=== PATIENT | male | born 1970 ===

== ENCOUNTER 2022-09-20 13:28 | Emergency (ER) | payer OTHER, SELFPAY ==
--- NOTE | ~2022-09-20 | CT_ITS ---
EXAMINATION: CT ABDOMEN AND PELVIS WITH CONTRAST CLINICAL INFORMATION: 10 out of 10 abdominal pain with nausea vomiting and diarrhea COMPARISON: None TECHNIQUE: Multidetector volumetric images were obtained from the superior aspect of the liver through the pubic symphysis following administration 85 mL of Omnipaque 350 intravenous contrast. Sagittal and coronal reformatted images were obtained on the technologist's workstation. Oral contrast: No This CT examination was performed using dose optimization techniques as appropriate, variously including the following: *Automated exposure control *Adjustment of mA and/or kV according to patient size (this includes techniques or standardized protocols for targeted exams where dose is matched to indication/reason for exam; i.e. extremities or head) *Use of iterative reconstruction technique DLP: 1287 mGy-cm FINDINGS: LUNG BASES: Minimal hazy bibasilar atelectasis. LIVER, GALLBLADDER, AND BILIARY TREE: Normal hepatic size. Slight hepatic hypoattenuation, possibly mild steatosis. 4.8 cm slightly lobulated indeterminate hypodense lesion in segment 7 series 3 image 21. Smaller indeterminate 1.7 cm lesion in segment 3 and 1.1 cm lesion in segment 4A. No biliary ductal dilation. The gallbladder is unremarkable with no evidence of radiopaque gallstones, gallbladder wall thickening, or obvious pericholecystic inflammatory changes. PANCREAS: Unremarkable. SPLEEN: Unremarkable. ADRENAL GLANDS: Unremarkable. KIDNEYS AND URETERS: Nephrograms are symmetric. No hydronephrosis. Small 2 mm nonobstructing right lower pole renal calculus. Small subcentimeter right lower pole hypodense lesion likely a tiny cyst, too small to characterize. No further follow-up imaging recommended. No additional renal lesions. Minimal symmetric perirenal fascial stranding, nonspecific. No perirenal fluid collection. BLADDER: Unremarkable. GASTROINTESTINAL TRACT: No dilated bowel loops. No bowel wall thickening. Normal appendix. No ascites or free air. ABDOMINAL WALL: Tiny fat-containing umbilical hernia. Small fat-containing left inguinal hernia. LYMPH NODES: No lymphadenopathy. VASCULAR: Normal caliber abdominal aorta. The celiac, SMA, and KATIA origins are patent. Portal vein, SMV and splenic vein are patent. PELVIC VISCERA: Unremarkable. OSSEOUS STRUCTURES: No acute fracture or suspicious osseous lesion. CT/CT abdomen pelvis w IV con IMPRESSION: 1. No acute intra-abdominal process identified. 2. Indeterminate hepatic lesions, the largest measuring 4.8 cm in size in segment 7. Recommend further characterization with multi phase liver MRI. 3. Small 2 mm nonobstructing right lower pole renal calculus. No hydronephrosis. 4. Additional chronic findings, as described.
[2022-09-20 13:36] VITALS: BP 139/91; PULSE 122; RESP 18; TEMP 36.6; O2SAT 98; BMI 28.5
--- NOTE | 2022-09-20 13:36 | ED.GENADULT ---
HPI - General Adult General Chief complaint: Abdominal Pain <DIONTE Montague - Last Filed: 09/20/22 13:39> Stated complaint: abd pain <DIONTE Montague - Last Filed: 09/20/22 13:39> Time Seen by Provider: 09/20/22 17:23 <DIONTE Montague - Last Filed: 09/20/22 13:39> Source: patient <DIONTE Montague - Last Filed: 09/20/22 13:39> patient <DIONTE Powell - Last Filed: 09/20/22 20:39> Mode of arrival: ambulatory <DIONTE Montague Last Filed: 09/20/22 13:39> ambulatory <DIONTE Powell - Last Filed: 09/20/22 20:39> Limitations: no limitations <DIONTE Montague - Last Filed: 09/20/22 13:39> no limitations <DIONTE Powell - Last Filed: 09/20/22 20:39> History of Present Illness HPI narrative: 52 yo male male presents to the ER for evaluation of 10/10 central abdominal pain that started this morning. It is associated with multiple episodes of nonbloody vomitus and nonbloody diarrhea. He states last night he had pork for dinner, no one else ate the pork. He thinks it might have been bad. He denies any fever or chills. He states the pain is in his central abdomen and radiates everywhere. It is been constant and reportedly a 10/10. No urinary symptoms. No chest pain, shortness of breath or URI symptoms. <DIONTE Powell - Last Filed: 09/20/22 20:39> MD complaint: Abdominal pain associated with nausea, vomiting, diarrhea <DIONTE Powell Last Filed: 09/20/22 20:39> Onset (ago): hour(s) <DIONTE Powell - Last Filed: 09/20/22 20:39> Location: abdomen <DIONTE Powell Last Filed: 09/20/22 20:39> Radiation: non-radiation <DIONTE Powell Last Filed: 09/20/22 20:39> Severity: severe <DIONTE Powell - Last Filed: 09/20/22 20:39> Severity scale (1-10): 10 <DIONTE Powell - Last Filed: 09/20/22 20:39> Quality: stabbing <DIONTE Powell Last Filed: 09/20/22 20:39> Pain Consistency: constant <DIONTE Powell Last Filed: 09/20/22 20:39> Relieving factors: none <DIONTE Powell Last Filed: 09/20/22 20:39> Exacerbating factors: none <DIONTE Powell Last Filed: 09/20/22 20:39> Associated symptoms: loss of appetite, malaise, nausea/vomiting and weakness <DIONTE Powell Last Filed: 09/20/22 20:39> Treatments prior to arrival: none <DIONTE Powell Last Filed: 09/20/22 20:39> Related Data Home medications: Previous Rx's Medication Instructions Recorded ondansetron 4 mg disintegrating 4 mg PO Q8H PRN nausea and 09/20/22 tablet vomiting #10 tabs <DIONTE Montague - Last Filed: 09/20/22 13:39> Allergies/adverse reactions: Allergies Allergy/AdvReac Type Severity Reaction Status Date / Time No Known Allergies Allergy Unverified 06/06/20 19:28 <DIONTE Montague - Last Filed: 09/20/22 13:39> Review of Systems Review of Systems: Yes all other systems are reviewed and are negative <DIONTE Powell Last Filed: 09/20/22 20:39> PMFSH Social History Social History: Social History Advance Directives: No Advance Directives Information Provided: No <DIONTE Montague Last Filed: 09/20/22 13:39> Physical Exam ED Vital Signs: Vital Signs - 24 hr 09/20/22 13:36 09/20/22 17:31 09/20/22 18:50 Temperature 98 F 98.2 F 98.2 F Pulse Rate 122 H 100 103 H Respiratory Rate 18 16 16 Blood Pressure 139/91 H 139/85 119/65 Pulse Oximetry 98 97 96 Oxygen Delivery Method Room Air Room Air Room Air BMI result Body Mass Index 28.5 <DIONTE Montague Last Filed: 09/20/22 13:39> Vital Signs - 24 hr 09/20/22 13:36 09/20/22 17:31 09/20/22 18:50 Temperature 98 F 98.2 F 98.2 F Pulse Rate 122 H 100 103 H Respiratory Rate 18 16 16 Blood Pressure 139/91 H 139/85 119/65 Pulse Oximetry 98 97 96 Oxygen Delivery Method Room Air Room Air Room Air BMI result Body Mass Index 28.5 <DIONTE Powell Last Filed: 09/20/22 20:39> Appearance: Alert. Oriented X3. No acute distress. Eyes: Pupils equal, round and reactive to light. ENT: Pharynx normal. Neck: Normal inspection. Neck supple. CVS: Normal heart rate and rhythm. Pulses normal. Respiratory: No respiratory distress. Breath sounds normal. Abdomen: Soft with mild diffuse tenderness throughout, no rebound or guarding. normal +BS x4 Skin: Skin warm and dry. Normal skin color. Normal skin turgor. No rashes. Extremities: No lower extremity edema. Neuro: Oriented X 3. No motor deficit. No sensory deficit. <DIONTE Powell Last Filed: 09/20/22 20:39> Course Course Course Narrative: RME performed by Rain Arellano PA-C. Patient is a 52 year old male presenting to the emergency department with abdominal pain. Patient states that he ate some questionable food and is now having stomach pain. Labs ordered. Patient placed in waiting room pending results and room availability. <DIONTE Montague Last Filed: 09/20/22 13:39> Reevaluation(s) Reevaluation #1: Patient seen and examined. Lab workup reviewed. Unremarkable findings. He is reporting 10/10 abd pain with some mild diffuse tenderness on exam. Will get CT scan for further evaluation. IVF, Morphine and zofran ordered. <DIONTE Powell Last Filed: 09/20/22 20:39> Time: 17:25 <DIONTE Powell Last Filed: 09/20/22 20:39> Reevaluation #2: CT scan showing no acute intra-abdominal process. Indeterminate hepatic lesions, largest measuring 4.8 cm. Patient is feeling better for medications. He is tolerating oral fluids. We discussed results of his CT scan his lab workup. Most likely gastroenteritis. Will discharge home with danuta Garcia. He will follow up with his PCP. Stable for DC. <DIONTE Powell - Last Filed: 09/20/22 20:39> Time: 20:36 <DIONTE Powell - Last Filed: 09/20/22 20:39> Medications Administered Discontinued Medications Generic Name Dose Route Start Last Admin Trade Name Freq PRN Reason Stop Dose Admin Sodium Chloride 1,000 mls @ 999 mls/hr 09/20/22 17:30 09/20/22 19:21 Ns IV 09/20/22 18:30 Infused .Q1H1M DALTON Infusion Iohexol 100 ml 09/20/22 19:35 09/20/22 19:35 Iohexol 350 Mg/Ml 100 Ml Infus..Btl IV 09/20/22 19:36 85 ml ONCE ONE Administration Morphine Sulfate 4 mg 09/20/22 17:28 09/20/22 18:09 Morphine Sulfate 4 Mg/Ml Cartridge IVPUSH 09/20/22 17:29 4 mg ONCE ONE Administration Protocol Ondansetron HCl 4 mg 09/20/22 17:28 09/20/22 18:09 Ondansetron Hcl 4 Mg/2 Ml Vial IVPUSH 09/20/22 17:29 4 mg ONCE ONE Administration <DIONTE Montague - Last Filed: 09/20/22 13:39> Medications Administered Discontinued Medications Generic Name Dose Route Start Last Admin Trade Name Freq PRN Reason Stop Dose Admin Sodium Chloride 1,000 mls @ 999 mls/hr 09/20/22 17:30 09/20/22 19:21 Ns IV 09/20/22 18:30 Infused .Q1H1M DALTON Infusion Iohexol 100 ml 09/20/22 19:35 09/20/22 19:35 Iohexol 350 Mg/Ml 100 Ml Infus..Btl IV 09/20/22 19:36 85 ml ONCE ONE Administration Morphine Sulfate 4 mg 09/20/22 17:28 09/20/22 18:09 Morphine Sulfate 4 Mg/Ml Cartridge IVPUSH 09/20/22 17:29 4 mg ONCE ONE Administration Protocol Ondansetron HCl 4 mg 09/20/22 17:28 09/20/22 18:09 Ondansetron Hcl 4 Mg/2 Ml Vial IVPUSH 09/20/22 17:29 4 mg ONCE ONE Administration <DIONTE Powell - Last Filed: 09/20/22 20:39> Medical Decision Making Differential Diagnosis Differential Diagnoses: The differential diagnosis associated with the presentation includes <DIONTE Powell - Last Filed: 09/20/22 20:39> Gastroenteritis, SBO, ileus, pancreatitis, cholecystitis, diverticulitis, appendicitis <DIONTE Powell - Last Filed: 09/20/22 20:39> Lab Data MDM Lab Attestation statement: I reviewed the patient's lab results. <DIONTE Powell - Last Filed: 09/20/22 20:39> Result Diagrams: : 09/20/22 13:46 09/20/22 13:46 <DIONTE Montague - Last Filed: 09/20/22 13:39> Labs: Lab Results 09/20/22 09/20/22 09/20/22 Range/Units 13:46 13:46 13:46 WBC 10.0 (4.8-10.8) X10*3/uL RBC 5.43 (4.60-5.80) X10*6/uL Hgb 15.3 (14.0-18.0) g/dl Hct 45.4 (42.0-52.0) % MCV 83.6 (80.0-98.0) fL MCH 28.2 (27.0-33.0) pg MCHC 33.7 (31.0-36.0) g/dl RDW 11.9 (11.0-16.0) % Plt Count 219 (160-400) X10*3/uL MPV 11.7 (9.4-12.4) fL Immature Gran % (Auto) 0.4 (0.0-0.4) % Neut % (Auto) 90.4 H (45-73) % Lymph % (Auto) 5.6 L (20-40) % [place] % (Auto) 3.5 (2-11) % Eos % (Auto) 0.0 (0-4) % Baso % (Auto) 0.1 (0-2) % Lymph # (Auto) 0.6 L (1.2-4.9) X10*3/uL [place] # (Auto) 0.4 (0.1-1.2) X10*3/uL Eos # (Auto) 0.0 (0.0-0.4) X10*3/uL Baso # (Auto) 0.0 (0.0-0.2) X10*3/uL Abs Immat Gran (auto) 0.04 H (0.00-0.03) X10*3/uL Absolute Neuts (auto) 9.0 H (2.0-8.3) x10*3/uL Absolute Nucleated RBC 0.000 (0.0-0.012) X10*3/uL Nucleated RBC % (auto) 0.0 (0.0-0.2) /100WBC Sodium 142 (135-145) mmol/L Potassium 4.1 (3.3-5.1) mmol/L Chloride 108 (96-108) mmol/L Carbon Dioxide 23 (22-29) mmol/L Anion Gap 15 (12-20) BUN 18 H (9-16) mg/dL Creatinine 1.03 (0.5-1.4) mg/dL Estim Creat Clear Calc 103.4 Estimated GFR > 60 Random Glucose 120 H (60-115) mg/dL Calcium 9.3 (8.4-10.2) mg/dL Total Bilirubin 0.6 (0.0-1.0) mg/dL AST 25 (5-37) U/L ALT 45 H (0-40) U/L Alkaline Phosphatase 95 (39-117) U/L Total Protein 8.0 (6.5-8.0) g/dL Albumin 4.7 (3.5-5.0) g/dL Lipase 8 (8-78) U/L Urine Color Urine Appearance Urine pH (5.0-9.0) Ur Specific [place] (1.005-1.025) Urine Protein (Neg-Trace) mg/dL Urine Glucose (UA) (Negative) mg/dL Urine Ketones (Negative) mg/dL Urine Blood (Negative) Urine Nitrite (Negative) Ur Leukocyte Esterase (Negative) Urine RBC (0-2) /HPF Urine WBC (0-5) /HPF Ur Squamous Epith Cells (0-2) /HPF Urine Bacteria (None Seen) Hyaline Casts (0-2) /LPF Influenza Type A (PCR) NEGATIVE (Negative) Influenza Type B (PCR) NEGATIVE (Negative) RSV RNA Qual (PCR) NEGATIVE (Negative) SARS-CoV-2 RNA (RT-PCR) NEGATIVE (Negative) 09/20/22 Range/Units 17:34 WBC (4.8-10.8) X10*3/uL RBC (4.60-5.80) X10*6/uL Hgb (14.0-18.0) g/dl Hct (42.0-52.0) % MCV (80.0-98.0) fL MCH (27.0-33.0) pg MCHC (31.0-36.0) g/dl RDW (11.0-16.0) % Plt Count (160-400) X10*3/uL MPV (9.4-12.4) fL Immature Gran % (Auto) (0.0-0.4) % Neut % (Auto) (45-73) % Lymph % (Auto) (20-40) % [place] % (Auto) (2-11) % Eos % (Auto) (0-4) % Baso % (Auto) (0-2) % Lymph # (Auto) (1.2-4.9) X10*3/uL [place] # (Auto) (0.1-1.2) X10*3/uL Eos # (Auto) (0.0-0.4) X10*3/uL Baso # (Auto) (0.0-0.2) X10*3/uL Abs Immat Gran (auto) (0.00-0.03) X10*3/uL Absolute Neuts (auto) (2.0-8.3) x10*3/uL Absolute Nucleated RBC (0.0-0.012) X10*3/uL Nucleated RBC % (auto) (0.0-0.2) /100WBC Sodium (135-145) mmol/L Potassium (3.3-5.1) mmol/L Chloride (96-108) mmol/L Carbon Dioxide (22-29) mmol/L Anion Gap (12-20) BUN (9-16) mg/dL Creatinine (0.5-1.4) mg/dL Estim Creat Clear Calc Estimated GFR Random Glucose (60-115) mg/dL Calcium (8.4-10.2) mg/dL Total Bilirubin (0.0-1.0) mg/dL AST (5-37) U/L ALT (0-40) U/L Alkaline Phosphatase (39-117) U/L Total Protein (6.5-8.0) g/dL Albumin (3.5-5.0) g/dL Lipase (8-78) U/L Urine Color Yellow Urine Appearance Clear Urine pH 5.5 (5.0-9.0) Ur Specific [place] 1.025 (1.005-1.025) Urine Protein Negative (Neg-Trace) mg/dL Urine Glucose (UA) Negative (Negative) mg/dL Urine Ketones Negative (Negative) mg/dL Urine Blood Small (1+) H (Negative) Urine Nitrite Negative (Negative) Ur Leukocyte Esterase Negative (Negative) Urine RBC 0-2 (0-2) /HPF Urine WBC 0-5 (0-5) /HPF Ur Squamous Epith Cells 0-2 (0-2) /HPF Urine Bacteria None Seen (None Seen) Hyaline Casts 0-2 (0-2) /LPF Influenza Type A (PCR) (Negative) Influenza Type B (PCR) (Negative) RSV RNA Qual (PCR) (Negative) SARS-CoV-2 RNA (RT-PCR) (Negative) <DIONTE Montague - Last Filed: 09/20/22 13:39> Lab Results 09/20/22 09/20/22 09/20/22 Range/Units 13:46 13:46 13:46 WBC 10.0 (4.8-10.8) X10*3/uL RBC 5.43 (4.60-5.80) X10*6/uL Hgb 15.3 (14.0-18.0) g/dl Hct 45.4 (42.0-52.0) % MCV 83.6 (80.0-98.0) fL MCH 28.2 (27.0-33.0) pg MCHC 33.7 (31.0-36.0) g/dl RDW 11.9 (11.0-16.0) % Plt Count 219 (160-400) X10*3/uL MPV 11.7 (9.4-12.4) fL Immature Gran % (Auto) 0.4 (0.0-0.4) % Neut % (Auto) 90.4 H (45-73) % Lymph % (Auto) 5.6 L (20-40) % [place] % (Auto) 3.5 (2-11) % Eos % (Auto) 0.0 (0-4) % Baso % (Auto) 0.1 (0-2) % Lymph # (Auto) 0.6 L (1.2-4.9) X10*3/uL [place] # (Auto) 0.4 (0.1-1.2) X10*3/uL Eos # (Auto) 0.0 (0.0-0.4) X10*3/uL Baso # (Auto) 0.0 (0.0-0.2) X10*3/uL Abs Immat Gran (auto) 0.04 H (0.00-0.03) X10*3/uL Absolute Neuts (auto) 9.0 H (2.0-8.3) x10*3/uL Absolute Nucleated RBC 0.000 (0.0-0.012) X10*3/uL Nucleated RBC % (auto) 0.0 (0.0-0.2) /100WBC Sodium 142 (135-145) mmol/L Potassium 4.1 (3.3-5.1) mmol/L Chloride 108 (96-108) mmol/L Carbon Dioxide 23 (22-29) mmol/L Anion Gap 15 (12-20) BUN 18 H (9-16) mg/dL Creatinine 1.03 (0.5-1.4) mg/dL Estim Creat Clear Calc 103.4 Estimated GFR > 60 Random Glucose 120 H (60-115) mg/dL Calcium 9.3 (8.4-10.2) mg/dL Total Bilirubin 0.6 (0.0-1.0) mg/dL AST 25 (5-37) U/L ALT 45 H (0-40) U/L Alkaline Phosphatase 95 (39-117) U/L Total Protein 8.0 (6.5-8.0) g/dL Albumin 4.7 (3.5-5.0) g/dL Lipase 8 (8-78) U/L Urine Color Urine Appearance Urine pH (5.0-9.0) Ur Specific [place] (1.005-1.025) Urine Protein (Neg-Trace) mg/dL Urine Glucose (UA) (Negative) mg/dL Urine Ketones (Negative) mg/dL Urine Blood (Negative) Urine Nitrite (Negative) Ur Leukocyte Esterase (Negative) Urine RBC (0-2) /HPF Urine WBC (0-5) /HPF Ur Squamous Epith Cells (0-2) /HPF Urine Bacteria (None Seen) Hyaline Casts (0-2) /LPF Influenza Type A (PCR) NEGATIVE (Negative) Influenza Type B (PCR) NEGATIVE (Negative) RSV RNA Qual (PCR) NEGATIVE (Negative) SARS-CoV-2 RNA (RT-PCR) NEGATIVE (Negative) 09/20/22 Range/Units 17:34 WBC (4.8-10.8) X10*3/uL RBC (4.60-5.80) X10*6/uL Hgb (14.0-18.0) g/dl Hct (42.0-52.0) % MCV (80.0-98.0) fL MCH (27.0-33.0) pg MCHC (31.0-36.0) g/dl RDW (11.0-16.0) % Plt Count (160-400) X10*3/uL MPV (9.4-12.4) fL Immature Gran % (Auto) (0.0-0.4) % Neut % (Auto) (45-73) % Lymph % (Auto) (20-40) % [place] % (Auto) (2-11) % Eos % (Auto) (0-4) % Baso % (Auto) (0-2) % Lymph # (Auto) (1.2-4.9) X10*3/uL [place] # (Auto) (0.1-1.2) X10*3/uL Eos # (Auto) (0.0-0.4) X10*3/uL Baso # (Auto) (0.0-0.2) X10*3/uL Abs Immat Gran (auto) (0.00-0.03) X10*3/uL Absolute Neuts (auto) (2.0-8.3) x10*3/uL Absolute Nucleated RBC (0.0-0.012) X10*3/uL Nucleated RBC % (auto) (0.0-0.2) /100WBC Sodium (135-145) mmol/L Potassium (3.3-5.1) mmol/L Chloride (96-108) mmol/L Carbon Dioxide (22-29) mmol/L Anion Gap (12-20) BUN (9-16) mg/dL Creatinine (0.5-1.4) mg/dL Estim Creat Clear Calc Estimated GFR Random Glucose (60-115) mg/dL Calcium (8.4-10.2) mg/dL Total Bilirubin (0.0-1.0) mg/dL AST (5-37) U/L ALT (0-40) U/L Alkaline Phosphatase (39-117) U/L Total Protein (6.5-8.0) g/dL Albumin (3.5-5.0) g/dL Lipase (8-78) U/L Urine Color Yellow Urine Appearance Clear Urine pH 5.5 (5.0-9.0) Ur Specific [place] 1.025 (1.005-1.025) Urine Protein Negative (Neg-Trace) mg/dL Urine Glucose (UA) Negative (Negative) mg/dL Urine Ketones Negative (Negative) mg/dL Urine Blood Small (1+) H (Negative) Urine Nitrite Negative (Negative) Ur Leukocyte Esterase Negative (Negative) Urine RBC 0-2 (0-2) /HPF Urine WBC 0-5 (0-5) /HPF Ur Squamous Epith Cells 0-2 (0-2) /HPF Urine Bacteria None Seen (None Seen) Hyaline Casts 0-2 (0-2) /LPF Influenza Type A (PCR) (Negative) Influenza Type B (PCR) (Negative) RSV RNA Qual (PCR) (Negative) SARS-CoV-2 RNA (RT-PCR) (Negative) <DIONTE Powell - Last Filed: 09/20/22 20:39> Radiology Impression Discussion of test interpretation with radiology: I have reviewed the radiologist's reading. <DIONTE Powell - Last Filed: 09/20/22 20:39> Radiologist Impression: Hepatic lesions, 4.8 cm. No acute intra-abdominal process. <DIONTE Powell - Last Filed: 09/20/22 20:39> Independent Historian Clinical information obtained from an independent historian. History obtained from or confirmed by: Spouse <DIONTE Powell - Last Filed: 09/20/22 20:39> External Record Review External record reviewed: Prior outpatient labs <DIONTE Powell Last Filed: 09/20/22 20:39> Prescription Management I considered prescription management with: Pain Medication and Antibiotic <DIONTE Powell Last Filed: 09/20/22 20:39> No antibiotics indicated, no leukocytosis, no colitis or infectious process. Pain medications given with improvement in symptoms. <DIONTE Powell - Last Filed: 09/20/22 20:39> Critical Care Time Critical Care Time Critical Care Time: No <DIONTE Powell Last Filed: 09/20/22 20:39> Discharge Plan Discharge Clinical Impression: Gastroenteritis, Lesion of liver <DIONTE Montague - Last Filed: 09/20/22 13:39> Patient Disposition: Home, Self-Care <DIONTE Montague Last Filed: 09/20/22 13:39> Instructions: Gastroenteritis (ED) <DIONTE Montague - Last Filed: 09/20/22 13:39> Additional Instructions: You lab workup today was unremarkable. Your urine test was negative for infection and . You most likely have a viral GI bug also known as gastroenteritis. Treatment is supportive care, symptoms usually resolve on their own in 48-72 hours. Recommend rest and plenty of oral hydration. Stick to a bland diet like soup and toast while you are not feeling well. Take the prescribed medication as needed for nausea. Recommend over the counter Pepto Bismol or Imodium for upset stomach and diarrhea. Follow up with your doctor as needed. If you develop new or worsening symptoms call 911 or come back to the ER for further evaluation. CT scan showed indeterminate hepatic lesions, largest measuring 4.8 cm in size. Radiologist is recommending further characterization with a dedicated liver MRI. Follow-up with your primary care doctor for this. Tu an?raul de laboratorio de hoy no tuvo nada especial. Brooks an?lisis de orina paulie negativo para infecci?n y embarazo. Lo m?s probable es que tenga un bicho GI viral, tambi?n conocido ute gastroenteritis. El tratamiento es atenci?n de apoyo, los s?ntomas generalmente se resuelven por s? solos en 48 a 72 horas. Recomendable reposo y adrianna hidrataci?n oral. Siga bill dieta blanda ute sopa y tostadas mientras no se sienta connor. [place] el medicamento recetado seg?n sea necesario para las n?useas. Recomiende Pepto Bismol o Imodium de venta rayshawn para el malestar estomacal y la diarrea. Fransisco un seguimiento con brooks m?dico seg?n sea necesario. Si desarrolla s?ntomas nuevos o que empeoran, llame al 911 o regrese a la sha de emergencias para bill evaluaci?n adicional. La tomograf?a computarizada mostr? lesiones hep?rupinder indeterminadas, las m?s grandes miden 4,8 cm de thao?o. El radi?logo recomienda bill mayor caracterizaci?n con bill resonancia magn?vidal hep?vidal dedicada. Fransisco un seguimiento con brooks m?dico de atenci?n primaria para esto. <DIONTE Montague - Last Filed: 09/20/22 13:39> Prescriptions: New ondansetron 4 mg tablet,disintegrating 4 mg PO Q8H PRN (Reason: nausea and vomiting) Qty: 10 0RF <DIONTE Montague - Last Filed: 09/20/22 13:39>
[2022-09-20 13:53] LABS: MANUAL DIFF FLAG NO
[2022-09-20 13:55] LABS: Basophils Percent Auto 0.1 % (0-2); Hematocrit 45.4 % (42.0-52.0); Hemoglobin 15.3 g/dl (14.0-18.0); Imm Gran Abs Auto 0.04 X10*3/uL (0.00-0.03); Imm Gran Pct Auto 0.4 % (0.0-0.4); Lymphocytes Absolute Auto 0.6 X10*3/uL (1.2-4.9); Lymphocytes Percent Auto 5.6 % (20-40); Mean Corpuscular HGB Conc 33.7 g/dl (31.0-36.0); Mean Corpuscular Hemoglobin 28.2 pg (27.0-33.0); Mean Corpuscular Volume 83.6 fL (80.0-98.0); Mean Platelet Volume 11.7 fL (9.4-12.4); Monocytes Absolute Auto 0.4 X10*3/uL (0.1-1.2); Monocytes Percent Auto 3.5 % (2-11); Neutrophils Percent Auto 90.4 % (45-73); Platelet Count 219 X10*3/uL (160-400); Red Blood Count 5.43 X10*6/uL (4.60-5.80); Red Cell Distribution Width 11.9 % (11.0-16.0); SCAN SMEAR FLAG 1
[2022-09-20 14:16] LABS: Alanine Aminotransferase 45 U/L (0-40); Albumin Level 4.7 g/dL (3.5-5.0); Alkaline Phosphatase 95 U/L (39-117); Anion Gap 15 (12-20); Aspartate Amino Transferase 25 U/L (5-37); Bilirubin Total 0.6 mg/dL (0.0-1.0); Blood Urea Nitrogen 18 mg/dL (9-16); Calcium 9.3 mg/dL (8.4-10.2); Carbon Dioxide 23 mmol/L (22-29); Chloride 108 mmol/L (96-108); Creatinine Clr Calc Pharmacy 103.4; Estimated Glomerular Filt Rate > 60; Glucose Random 120 mg/dL (60-115); Potassium 4.1 mmol/L (3.3-5.1); Sodium 142 mmol/L (135-145)
[2022-09-20 14:48] LABS: Influenza A PCR NEGATIVE (Negative); Influenza B PCR NEGATIVE (Negative); Resp Syncy Virus RNA Qual PCR NEGATIVE (Negative); SARS COV2 PCR INHOUSE NEGATIVE (Negative)
[2022-09-20 17:31] VITALS: BP 139/85; PULSE 100; RESP 16; TEMP 36.8; O2SAT 97
[2022-09-20 17:41] LABS: Appearance Urine Clear; Color Urine Yellow; Glucose Urine UA Negative (Negative); Leukocyte Esterase Urine Negative (Negative); Nitrite Urine Negative (Negative); PH 5.5 (5.0-9.0); Specific Gravity - Urine 1.025 (1.005-1.025); UMIC TRIGGER UACC YES; Urine Blood Small (1+) (Negative); Urine Ketones Negative (Negative); Urine Protein Negative (Neg-Trace)
[2022-09-20 17:53] LABS: Bacteria Urine None Seen (None Seen); Hyaline Casts Urine 0-2 /LPF (0-2); RBC Urine 0-2 /HPF (0-2); Squamous Epithelial Cell Urine 0-2 /HPF (0-2); WBC Urine 0-5 /HPF (0-5)
[2022-09-20] MEDS: 0.9 % Sodium Chloride 1,000 ML 999 ML IV (18:04)
[2022-09-20] MEDS: Morphine Sulfate 4 MG/ML CARTRIDGE IVPUSH (18:09)
[2022-09-20] MEDS: ondansetron HCL 4 MG/2 ML VIAL IVPUSH (18:09)
--- NOTE | 2022-09-20 18:14 | PC.NURSE ---
IV established, medicated per the MAR. Normal saline infusing. Awaiting ct scan
[2022-09-20 18:19] LABS: Lipase 8 U/L (8-78)
[2022-09-20 18:50] VITALS: BP 119/65; PULSE 103; RESP 16; TEMP 36.8; O2SAT 96
[2022-09-20] MEDS: iohexoL 350 MG/ML 100 ML INFUS..BTL IV (19:35)
[2022-09-20 20:43] VITALS: BP 140/88; PULSE 100; RESP 16; TEMP 36.3; O2SAT 97
== END 2022-09-20 20:46 | disposition home or self-care (01) ==
PROVIDERS: Physician Assistant; Physician Assistant Medical; Emergency Provider Internal Medicine
DX: K52.9 Noninfective gastroenteritis and colitis, unspecified (principal); K76.9 Liver disease, unspecified; Z20.822 Contact with and (suspected) exposure to COVID-19; Z79.899 Other long term (current) drug therapy
CPT/HCPCS: 0241U; 74177; 80053; 81001; 83690; 85025; 96361; 96374; 96375; 99284; J2270; J2405; Q9967

== ENCOUNTER 2024-08-06 07:15 | Emergency (ER) | payer MEDICAID, SELFPAY ==
--- NOTE | ~2024-08-06 | US_ITS ---
EXAMINATION: US ABDOMEN LIMITED CLINICAL INFORMATION: Right upper quadrant pain. COMPARISON: CT scan 09/20/2022 TECHNIQUE: Real-time imaging of the right upper quadrant abdominal viscera. FINDINGS: PANCREAS: Normal. LIVER: 3 subtle hypoechoic lesions are present consistent with previous CT scan. Largest measures up to 2.2 cm left lobe. The liver is normal in size. The liver contour is normal. Diffuse increased echogenicity. There is no intrahepatic biliary duct dilatation seen. GALLBLADDER: Normal. The gallbladder is physiologically distended without evidence of stones, sludge, polyps, wall thickening or pericholecystic fluid. COMMON BILE DUCT: Normal in caliber measuring 0.3 cm in diameter. FREE FLUID: None. US/US abdomen limited IMPRESSION: No gallstones. No biliary dilatation. Nonspecific hepatic lesions. Once again MRI is recommended for definitive characterization. Electronically signed by: Virgil Ag MD 08/06/2024 09:24 AM [facility]
[2024-08-06 07:21] VITALS: BP 143/85; PULSE 81; RESP 19; TEMP 36.6; O2SAT 98; BMI 27.7
--- NOTE | 2024-08-06 07:31 | ED_ITS ---
HPI - Abdominal Pain General Chief Complaint: Abdominal Pain Stated Complaint: Abd pain Time Seen by Provider: 08/06/24 07:29 Source: patient and park interpreter (lao) Mode of arrival: ambulatory Limitations: language barrier (lao speaking) History of Present Illness ED Provider: RICHA RAMIREZ PA-C HPI narrative: 54 year old Turkish speaking male with pmhx significant for GERD and gastritis presents to the ED today for evaluation of abdominal pain x3 days. Pain is localized to right upper quadrant. No radiation. Pain has been constant since onset. No radiation. Not worse with eating. He has been taking omeprazole as needed without much improvement. Denies any fever, chills, chest pain, nausea, vomiting, diarrhea, constipation. Last bowel movement was yesterday and was normal per patient. No history of abdominal surgery. Related Data Previous Rx's ?Medication ?Instructions ?Recorded ondansetron 4 mg disintegrating 4 mg PO Q8H PRN nausea and 09/20/22 tablet vomiting #10 tabs sucralfate 1 gram tablet 1 g PO DAILY PRN stomach pain 2 08/06/24 weeks #14 tabs Allergies Allergy/AdvReac Type Severity Reaction Status Date / Time No Known Allergies Allergy Verified 08/06/24 07:24 Review of Systems Review of Systems Constitutional: No fever, chills, fatigue, night sweats, weight changes ENT/Mouth: No ear pain, hearing loss, nasal congestion, sinus pain, rhinorrhea, sore throat Eyes: No eye pain, swelling, redness, vision changes, discharge Cardio: No chest pain, palpitations, FELIX, orthopnea, peripheral edema Pulm: No SOB, cough, sputum, wheezing, dyspnea, hemoptysis GI: No nausea, vomiting, hematemesis, diarrhea, constipation, hematochezia, melena, +RUQ abdominal pain : No irregular bleeding, dysuria, frequency, urgency, hesitancy, hematuria, flank pain, urinary flow changes, urinary incontinence or retention MSK: No back pain, neck pain, joint pain, myalgias Skin: No lesions, rashes Neuro: No weakness, numbness, paresthesias, LOC, dizziness, headache Psych: No anxiety/panic, depression, SI/HI, AH/VH All other systems reviewed and are negative. [facility] Past Medical History Attestation statement: The following information was validated with the patient. Source: old records reviewed and nursing notes reviewed Social History Social History Advance Directives: No Advance Directives Information Provided: Yes Do you have a plan to hurt others: No Plan Physical Exam ED Vital Signs: Vital Signs - 24 hr 08/06/24 07:21 08/06/24 09:18 Temperature 98 F 98.1 F Pulse Rate 81 73 Respiratory Rate 19 20 Blood Pressure 143/85 H 139/90 H Pulse Oximetry 98 98 Oxygen Delivery Method Room Air Room Air BMI result Body Mass Index 27.7 hypertensive, vitals otherwise wnl. General: Well appearing, in no acute distress. Skin: Warm, dry, intact. No rashes or lesions. Head: Normocephalic, atraumatic. EENT: Hearing is intact b/l. Conjunctiva clear. Sclera is anicteric. PERRLA. Moist mucous membranes.? Neck: Supple without LAD Cardiac: Chest wall symmetric. RRR Lungs: Normal respiratory effort without accessory muscle use. CTA bilaterally? Abdomen: Obese abdomen, soft, nondistended, tender to palpation of right upper quadrant with voluntary guarding. Negative Waldrop's sign. Normoactive bowel sounds x4. No CVAT bilaterally. Back: No midline spinous or paraspinal tenderness. No step off deformity. Ext: Upper and lower extremities atraumatic, without tenderness, deformity, swelling or erythema. Full ROM throughout. Neuro: AOx3. Normal speech. Ambulating with steady gait. Psych: Appropriate mood and affect. Responds appropriately to questions. Course Course Course Narrative: 1100 -- CBC without leukocytosis or left shift. No anemia. H&H stable. Chemistry without acute electrolyte abnormality requiring intervention. No ELPIDIO. Normal liver function. Right upper quadrant ultrasound without evidence of gallstones. No ductal dilation. There are nonspecific hepatic lesions which were visualized on CT obtained on 10/12, recommending MRI for further visualization. > discussed all work up results with patient. he reports symptom improvement after receiving GI cocktail. Will send home with sucralfate. advisedto follow up with pcp and GI. Patient has remained stable throughout ED visit today. Discussed worrisome signs and symptoms and when to return to the ED. All questions answered at this time. Patient is agreeable with disposition and stable for discharge. Medical Decision Making Medical Decision Making MDM Narrative: 54 year old Turkish speaking male with pmhx significant for GERD and gastritis presents to the ED today for evaluation of abdominal pain x3 days. Patient hypertensive, vitals otherwise WNL. He is nontoxic appearing in no acute distress. Lying comfortably on the exam bed. On exam, Obese abdomen, soft, nondistended, tender to palpation of right upper quadrant with voluntary guarding. Negative Waldrop's sign. Normoactive bowel sounds x4. No CVAT bilaterally. Differential diagnosis includes biliary colic, renal colic, nephrolithiasis, gastroenteritis, gastritis, GERD. Abdominal exam without peritoneal signs. No evidence of acute abdomen at this time. Well appearing. Moderate suspicion for acute hepatobiliary disease (including acute cholecystitis). Less likely to represent acute pancreatitis, PUD (including perforation), acute infectious processes (pneumonia, hepatitis, pyelonephritis), atypical appendicitis, vascular catastrophe, bowel obstruction or viscus perforation. Presentation not consistent with other acute, emergent causes of abdominal pain at this time. Plan: labs, UA, pain control, RUQ US, serial reassessment Differential Diagnosis Differential Diagnoses: The differential diagnosis associated with the presentation includes As above Admission/Observation Not indicated Lab Data [facility] Lab Attestation statement: I reviewed the patient's lab results. As above 08/06/24 07:36 08/06/24 07:36 Labs: Lab Results 08/06/24 Range/Units 07:36 WBC 5.2 (4.8-10.8) X10*3/uL RBC 5.07 (4.60-5.80) X10*6/uL Hgb 14.5 (14.0-18.0) g/dl Hct 42.6 (42.0-52.0) % MCV 84.0 (80.0-98.0) fL MCH 28.6 (27.0-33.0) pg MCHC 34.0 (31.0-36.0) g/dl RDW 12.0 (11.0-16.0) % Plt Count 215 (160-400) X10*3/uL MPV 10.8 (9.4-12.4) fL Immature Gran % (Auto) 0.4 (0.0-0.4) % Neut % (Auto) 44.8 L (45-73) % Lymph % (Auto) 43.5 H (20-40) % Juncos % (Auto) 8.4 (2-11) % Eos % (Auto) 2.3 (0-4) % Baso % (Auto) 0.6 (0-2) % Lymph # (Auto) 2.3 (1.2-4.9) X10*3/uL Juncos # (Auto) 0.4 (0.1-1.2) X10*3/uL Eos # (Auto) 0.1 (0.0-0.4) X10*3/uL Baso # (Auto) 0.0 (0.0-0.2) X10*3/uL Abs Immat Gran (auto) 0.02 (0.00-0.03) X10*3/uL Absolute Neuts (auto) 2.3 (2.0-8.3) x10*3/uL Absolute Nucleated RBC 0.000 (0.0-0.012) X10*3/uL Nucleated RBC % (auto) 0.0 (0.0-0.2) /100WBC Sodium 140 (135-145) mmol/L Potassium 4.2 (3.3-5.1) mmol/L Chloride 106 (96-108) mmol/L Carbon Dioxide 25 (22-29) mmol/L Anion Gap 13 (12-20) BUN 13 (9-16) mg/dL Creatinine 0.86 (0.5-1.4) mg/dL Estim Creat Clear Calc 110.9 Estimated GFR > 60 Random Glucose 102 (60-115) mg/dL Calcium 9.7 (8.4-10.2) mg/dL Total Bilirubin 0.3 (0.0-1.0) mg/dL Direct Bilirubin 0.1 (0.0-0.5) mg/dL AST 22 (5-37) U/L ALT 33 (0-40) U/L Alkaline Phosphatase 87 (39-117) U/L Total Protein 7.6 (6.5-8.0) g/dL Albumin 4.2 (3.5-5.0) g/dL Lipase 11 (8-78) U/L Independent Interpretation I performed an independent interpretation of an: Ultrasound Interpretation: US RUQ without evidence of gallstones or thickening of gallbladder wall. Radiology Impression Discussion of test interpretation with radiology: I have reviewed the radiologist's reading. Radiologist Impression: EXAMINATION: US ABDOMEN LIMITED CLINICAL INFORMATION: Right upper quadrant pain. COMPARISON: CT scan 09/20/2022 TECHNIQUE: Real-time imaging of the right upper quadrant abdominal viscera. FINDINGS: PANCREAS: Normal. LIVER: 3 subtle hypoechoic lesions are present consistent with previous CT scan. Largest measures up to 2.2 cm left lobe. The liver is normal in size. The liver contour is normal. Diffuse increased echogenicity. There is no intrahepatic biliary duct dilatation seen. GALLBLADDER: Normal. The gallbladder is physiologically distended without evidence of stones, sludge, polyps, wall thickening or pericholecystic fluid. COMMON BILE DUCT: Normal in caliber measuring 0.3 cm in diameter. FREE FLUID: None. US/US abdomen limited IMPRESSION: No gallstones. No biliary dilatation. Nonspecific hepatic lesions. Once again MRI is recommended for definitive characterization. Electronically signed by: Virgil Ag MD 08/06/2024 09:24 AM [facility] [place] [place] Independent Historian Clinical information obtained from an independent historian. History obtained from or confirmed by: Spouse () External Record Review External record reviewed: Inpatient record Prescription Management I considered prescription management with: Pain Medication and Other (sucralfate) Chronic Conditions Patient?s care impacted by: Hypertension Social Determinants Patient?s care significantly limited by Social Determinants of Health including: Other Social Determinant of Health Medications Administered Discontinued Medications Generic Name Dose Route Start Last Admin Trade Name Freq PRN Reason Stop Dose Admin Al Hydroxide/Mg Hydroxide 30 ml 08/06/24 09:02 08/06/24 09:15 Magnesium Hydrox/Alum Hydrox 30 Ml Oral.Susp PO 08/06/24 09:03 30 ml ONCE ONE Administration Belladonna Alkaloids/Phenobarbital 10 ml 08/06/24 09:02 08/06/24 09:14 Phenobarb/Hyoscy/Atropine/Scop 10 Ml Elixir PO 08/06/24 09:03 10 ml ONCE ONE Administration Ketorolac Tromethamine 30 mg 08/06/24 07:54 08/06/24 08:02 Ketorolac Tromethamine 30 Mg/Ml Vial IM 08/06/24 07:55 30 mg ONCE ONE Administration Ondansetron HCl 4 mg 08/06/24 09:02 08/06/24 09:15 Ondansetron Odt 4 Mg Tab.Nicole CHENGU 08/06/24 09:03 4 mg ONCE ONE Administration Critical Care Time Critical Care Time Critical Care Time: No Discharge Plan Discharge Clinical Impression: Abdominal pain Patient Disposition: Home, Self-Care Instructions: Abdominal Pain (ED) Additional Instructions: You were evaluated in the ED today for abdominal pain. Your blood work today is reassuring. The ultrasound of your abdomen shows normal gallbladder. There are nonspecific lesions to your liver that were identified on scan 2 years ago. stable. I recommend out patient follow up for possible MRI to further evaluate. I have provided you with a referal to both a PCP and GI specialist for this. Please call them to establish care. they will not call you. You report improvement in symptoms following medication given in the ED today. Return with new or worsening symptoms. In the case of an emergency call 911. Prescriptions: New sucralfate 1 gram tablet 1 g PO DAILY PRN (Reason: stomach pain) 14 Days Qty: 14 0RF No Action ondansetron 4 mg tablet,disintegrating 4 mg PO Q8H PRN (Reason: nausea and vomiting) Qty: 10 0RF Referrals: [facility] [place] [Provider Group] [facility] [place] Family Medicine [Provider Group] [facility] [place] [facility] [Provider Group] [facility] [place] Primary [facility] [Provider Group] Discharge Date/Time: 08/06/24 11:11 Print Language: Turkish
[2024-08-06 07:41] LABS: Basophils Percent Auto 0.6 % (0-2); Eosinophils Absolute Auto 0.1 X10*3/uL (0.0-0.4); Eosinophils Percent Auto 2.3 % (0-4); Hematocrit 42.6 % (42.0-52.0); Hemoglobin 14.5 g/dl (14.0-18.0); Imm Gran Abs Auto 0.02 X10*3/uL (0.00-0.03); Imm Gran Pct Auto 0.4 % (0.0-0.4); Lymphocytes Absolute Auto 2.3 X10*3/uL (1.2-4.9); Lymphocytes Percent Auto 43.5 % (20-40); MANUAL DIFF FLAG NO; Mean Corpuscular Hemoglobin 28.6 pg (27.0-33.0); Mean Platelet Volume 10.8 fL (9.4-12.4); Monocytes Absolute Auto 0.4 X10*3/uL (0.1-1.2); Monocytes Percent Auto 8.4 % (2-11); Neutrophils Absolute Auto 2.3 x10*3/uL (2.0-8.3); Neutrophils Percent Auto 44.8 % (45-73); Platelet Count 215 X10*3/uL (160-400); Red Blood Count 5.07 X10*6/uL (4.60-5.80); White Blood Count 5.2 X10*3/uL (4.8-10.8)
[2024-08-06] MEDS: Ketorolac Tromethamine 30 MG/ML VIAL IM (08:02)
[2024-08-06 08:13] LABS: Alanine Aminotransferase 33 U/L (0-40); Albumin Level 4.2 g/dL (3.5-5.0); Anion Gap 13 (12-20); Aspartate Amino Transferase 22 U/L (5-37); Bilirubin Direct 0.1 mg/dL (0.0-0.5); Bilirubin Total 0.3 mg/dL (0.0-1.0); Blood Urea Nitrogen 13 mg/dL (9-16); Calcium 9.7 mg/dL (8.4-10.2); Carbon Dioxide 25 mmol/L (22-29); Chloride 106 mmol/L (96-108); Creatinine Clr Calc Pharmacy 110.9; Estimated Glomerular Filt Rate > 60; Glucose Random 102 mg/dL (60-115); Lipase 11 U/L (8-78); Potassium 4.2 mmol/L (3.3-5.1); Sodium 140 mmol/L (135-145); Total Protein 7.6 g/dL (6.5-8.0)
[2024-08-06 08:23] LABS: Alkaline Phosphatase 87 U/L (39-117)
[2024-08-06] MEDS: PHENobarb/Hyoscy/Atropine/Scop 10 ML ELIXIR PO (09:14)
[2024-08-06] MEDS: Ondansetron ODT 4 MG TAB.RAPDIS TRANSLINGU (09:15)
[2024-08-06] MEDS: Magnesium Hydrox/Alum Hydrox 30 ML ORAL.SUSP PO (09:15)
[2024-08-06 09:18] VITALS: BP 139/90; PULSE 73; RESP 20; TEMP 36.7; O2SAT 98
[2024-08-06 11:08] VITALS: BP 131/74; PULSE 76; RESP 18; TEMP 36.5; O2SAT 98
== END 2024-08-06 11:11 | disposition home or self-care (01) ==
PROVIDERS: Emergency Provider Emergency Medicine
DX: R10.2 Pelvic and perineal pain (principal); R10.11 Right upper quadrant pain; Z79.899 Other long term (current) drug therapy
CPT/HCPCS: 36415; 76705; 80048; 80076; 83690; 85025; 96372; 99283; 99284; J1885

== ENCOUNTER 2024-11-28 14:34 | Outpatient (REF) | payer MEDICAID, SELFPAY ==
--- NOTE | ~2024-11-28 | XR_ITS ---
EXAMINATION: XR LUMBOSACRAL SPINE CLINICAL INFORMATION: OLD INJURY COMPARISON: None available. Correlation made with CT abdomen and pelvis 09/20/2022. TECHNIQUE: 5 views of the lumbar spine, inclusive of bilateral oblique views, were obtained. FINDINGS: No scoliosis. Mild straightening of the normal lordosis. No subluxations. No fracture, compression deformity, or suspicious bone lesion. Mild multilevel disc degeneration. Facets normally aligned. Early facet degeneration L3-S1. No pars defects evident. SI joints demonstrate mild to moderate degenerative arthritis with mild periarticular sclerosis. No soft tissue abnormalities present. XR/XR lumbar spine 4V min IMPRESSION: 1. Mild degenerative spondylosis. No acute finding. Electronically signed by: Evans Sprague MD 11/28/2024 04:23 PM EDT
--- OUTSIDE RECORDS SUMMARY | 2024-11-28 17:52 | XMS_ITS | Encounter Summary ---
Author Organization [employer] Address [address] [place] [address] Care Team Providers Care Fire Engine Pump Operator Name Role Phone Unavailable Primary Care Provider Unavailabl e Reason for Visit * Reason Comments Pre-visit Planning SDOH Screening negat champ and Tobacco screening negative Encounter Details Date Type Department Care Team ([facility] st Contact Info) Description 11/17/2024 Patient Outreach [facility] [address] [place] [phone] Name, MD Chip [address] [place] [address] Pre-visit Planning (SDOH Screening negative and Tobacco screening negative) Social History Tobacco Use Types Packs/Day Years Used Date Smoking Tobacco: Never Assessed Housing Stability Answer Date Recorded What is your housing situation today? I have summer scott 11/17/[address] you li ve. Do you have problems with any of the following? None of the above 11/17/2024 Food Insecurity Answer Date Recorded Within the past 12 months, y ou worried that your food would run out before you got money to buy more: Never True 11/17/2024 Within the past 12 months,th e food you bought just didn't last and you didn't have enough money to get more: Never True Transportation Answer Date Recorded In the past 12 months, has l ack of transportation kept you from medical appts, meetings, work or from getting things needed for daily living? No 11/17/2024 Utilities Answer Date Recorded In the past 12 months, has t he electric, gas, oil or water company threatened to shut off services in your home? No 11/17/2024 Internet Access Answer Date Recorded Internet Access Q1 Yes 11/17/2024 Internet Access Q2 Not on file 11/17/2024 Sex and Gender Information Value Date Recorded Sex Assigned at Male 05/30/2024 1:57 PM EDT Legal Sex Male 1:55 PM EDT Gender Identity Male 05/30/2024 1:57 PM EDT Sexual Orientation Straight 05/30/2024 1: 57 PM EDT documented as of this encounter Progress Notes * Arminda Wisdom - 11/17/2024 11:25 AM EST CHERYL Coles placed successful outbound call to patient for pre-visit planning. Patient name and confirmed by Beatriz. Patient's confirms appt date and time, and has transportation arrangements. Biggest concern for appointment at this time is per stomach pain this past months has not complained of any pain but in August 2024 had stomach pain . Patient's advised to bring to appointment a photo id and insurance card. Appropriate screenings completed in anticipation of appointment. documented in this encounter Plan of Treatment Upcoming Encounters Date Type Department Care Team (Late st Contact Info) Description 12/05/2024 11:00 AM EDT Telemedicine [facility] [address] [place] [phone] 02/20/2025 11:15 AM EDT Office Visit [facility] [address] [place] [phone] Name, MD Chip [address] [place] [phone] documented as of this encounter Visit Diagnoses Not on filedocumented in this encounter
--- OUTSIDE RECORDS SUMMARY | 2024-11-28 17:52 | XMS_ITS | Encounter Summary ---
Author Organization [employer] Address [address] [place] [address] Care Team Providers Care Broach Setter Name Role Phone Name, Chip LEHMAN Primary Care Provider [phone] Encounter Details Date Type Department Care Team (Latest Contact Info) Description 11/28/2024 Travel Social History Tobacco Use Types Packs/Day Years Used Date Smoking Tobacco: Never Smokeless Tobacco: Never Alcohol Use Standard Drinks/Week Comments Never 0 (1 standard drink = 0.6 oz pur e alcohol) Depression Answer Date Recorded Patient Health Questionnaire-9 Score 0 11/28/2024 Patient Health Questionnaire-9 Score 0 11/28/2024 Last PHQ-9: Questionnaire Data Not on file 0 11/28/2024 Housing Stability Answer Date Recorded What is [...] off services in your home? No 11/17/2024 Depression Answer Date Recorded Patient Health Questionnaire-2 Score 0 11/28/2024 Internet Access Answer Date Recorded Internet Access Q1 Yes 11/17/2024 Internet Access Q2 Not on file 11/17/2024 Sex and Gender Information Value Date Recorded Sex Assigned at Male 05/30/2024 1:57 PM EDT Legal Sex Male 1:55 PM EDT Gender Identity Male 05/30/2024 1:57 PM EDT Sexual Orientation Straight 05/30/2024 1: 57 PM EDT documented as of this encounter Plan of Treatment Upcoming Encounters Date Type Department Care Team (Late st Contact Info) Description 12/05/2024 11:00 AM EDT Telemedicine [facility] [address] [place] [phone] 02/20/2025 11:15 AM EDT Office Visit [facility] [address] [place] [phone] NameChip MD [address] [place] [phone] documented as of this encounter Visit Diagnoses Not on filedocumented in this encounter Additional Health Concerns Assessment Noted Time PHQ-9 Depression Total Score: 0 11/29/19 1:54 PM EDT documented as of this encounter Care Teams Broach Setter Relationship Specialty Start Date End Date NameChip MD [address] [place] [phone] PCP - General Internal Medicine 11/28/24 documented as of this encounter
--- OUTSIDE RECORDS SUMMARY | 2024-11-28 17:52 | XMS_ITS | Clinical Summary ---
Author Organization [employer] Address [address] [facility] [address] [place] [address] Care Team Providers Care Lead Section Supervisor Name Role Phone NameChip MD Primary Care Provider [phone] Allergies No known active allergies Medications Blood Pressure kit Use at home once a day 1 kit 11/29/19 25 Active omeprazole OTC (PriLOSEC OTC) 20 MG EC tablet Take 1 tablet (20 mg) by mouth before breakfast. Do not crush, chew, or split. 30 tablet 11/29/19 25 026 Active acetaminophen (Tylenol Extra Strength) 500 MG tablet Take 1 tablet (500 mg) by mouth every 8 (eight) hours if needed for moderate pain. 90 tablet 11/29/19 25 025 Active omeprazole OTC (PriLOSEC OTC) 20 MG EC tablet Take 1 tablet (20 mg) by mouth before breakfast. Do not crush, chew, or split. 30 tablet 11/29/19 25 025 Discontinued(Re order (will not trigger notification to Pharmacy)) Encounters Date Type Department Care Team Description 11/28/2024 2:00 PM EDT Office Visit [facility] [address] [place] [phone] Chip Juan MD Elevated blood pressure reading (Primary Dx); Chronic bilateral low back pain with left-sided sciatica; Epigastric pain; Screening for prostate cancer; Encounter for screening for malignant neoplasm of colon; Screening for cholesterol level; Screening for diabetes mellitus 11/28/2024 Travel 11/17/2024 Patient Outreach [facility] [address] [place], [place] [phone] Chip Juan MD Pre-visit Planning (SDOH Screening negative and Tobacco screening negative) 09/21/2024 Telephone [facility] [address] [place] [address] Raul Ch MD new patient appt. from Last 3 Months Immunizations Name Administration Dates Next Due Influenza injectable quadriv alent preservative free 06/27/2021 Influenza, seasonal, injecta ble, preservative free 11/28/2024 Moderna Covid-19 Vaccine 12+ 10/25/2021,03/29/20 21,03/01/2021 Tdap 11/28/2024 Family History Medical History Relation Name Comments Hypertension Brother Diabetes Mother Hypertension Mother Relation Name Status Comments Brother Mother Social History Tobacco Use Types Packs/Day Years Used Date Smoking Tobacco: Never Smokeless Tobacco: Never Tobacco Cessation:Counseling Given: Not Answered Alcohol Use Standard Drinks/Week Comments Never 0 [...] Orientation Straight 05/30/2024 1: 57 PM EDT Last Filed Vital Signs Vital Sign Reading Time Taken Comments Blood Pressure 155/103 11/28/2024 1:45 PM EDT Pulse 86 11/28/2024 1:45 PM EDT Temperature 37.1 ??C (98.8 ??F) 11/28/2024 1:45 PM ED T Respiratory Rate 21 11/28/2024 1:45 PM EDT Oxygen Saturation 98% 11/28/2024 1:45 PM EDT Inhaled Oxygen Concentration - - Weight 107 kg (236 lb 12.8 oz) 11/28/2024 1:45 P M EDT Height 185.4 cm (6' 1 ) 11/28/2024 1:45 PM EDT Body Mass Index 31.24 11/28/2024 1:45 PM EDT Plan of Treatment Upcoming Encounters Date Type Department Care Team (Late st Contact Info) Description 12/05/2024 11:00 AM EDT Telemedicine [facility] [address] [place] [phone] 02/20/2025 11:15 AM EDT Office Visit [facility] [address] [place] [phone] Name, MD Chip [address] [place] [phone] Health Maintenance Due Date Last Done Comments CT Colonography 1970 Colonoscopy 1970 Colorectal Cancer Screening 1970 FIT DNA/Cologuard 1970 FIT 1970 FOBT 1970 HIV Screening 1970 Lipid Panel 1970 Sigmoidoscopy 1970 Hepatitis C Screening 1988 Hepatitis B Vaccines (1 of 3 - 19+ 3-dose series) 1989 Pneumococcal Vaccine: 50+ Years (1 of 1 - PCV) 2020 Zoster Vaccines (1 of 2) 2020 COVID-19 Vaccine (4 - 2023-2 5 season) 2024 10/25/2021, 03/29/2021, 03/01/2021 SDOH Screening 11/17/2025 11/17/2024 Alcohol/Substance Use Screening 11/28/2025 11/28/2024 Depression Screening 11/28/2025 11/28/2024, 11/28/2024 Tobacco Screening 11/28/2025 11/28/2024 DTaP/Tdap/Td Vaccines (2 - T d or Tdap) 11/28/2034 11/28/2024 RSV Patients and Patients Aged 60 years or older (1 - 1-dose 75+ series) 2045 Influenza Vaccine Completed 11/28/2024, 06/27/2021 HIB Vaccines Aged Out No longer eligi ble based on patient's age to complete this topic HPV Vaccines Aged Out No longer eligi ble based on patient's age to complete this topic Hepatitis A Vaccines Aged Out No long er eligible based on patient's age to complete this topic IPV Vaccines Aged Out No longer eligi ble based on patient's age to complete this topic Meningococcal Vaccine Aged Out No chaparro shawn eligible based on patient's age to complete this topic RSV under 20 months Aged Out No longe r eligible based on patient's age to complete this topic Rotavirus Vaccines Aged Out No longer eligible based on patient's age to complete this topic [place] [address] [place] [address] C3 Care Teams Lead Section Supervisor Relationship Specialty Start Date End Date Name, MD Chip [address] [place] [phone] PCP - General Internal Medicine 11/28/24
--- OUTSIDE RECORDS SUMMARY | 2024-11-28 17:52 | XMS_ITS | Encounter Summary ---
Author Organization [employer] Address [address] [place] [address] 7 [place] [address] Care Team Providers Care Drivability Technician Name Role Phone Chip Juan MD Primary Care Provider [phone] Reason for Referral * Consultation (Routine) - Authorized Specialty Diagnoses / Procedures Referred By Lucy cadena Referred To Contact Gastroenterology Diagnoses Encounter for screening for malignant neoplasm of colon Chip Juan MD [address] [place] [phone] Phone: tel: fax: [facility] [address] [place] [address] [address] [place], [place] Phone: tel: fax: Referral ID Status Reason Start Date Expiration Date Visits Requested Visits Authorized [id number] Authorized Specialty Services Required 11/28/2024 11/28/2025 6 6 Reason for Visit * Reason Comments New patient visit Encounter Details Date Type Department Care Team (Late st Contact Info) Description 11/28/2024 2:00 PM EDT Office Visit [facility] [address] [place] [address] [phone] Chip Juan MD [address] [place] [address] [phone] Elevated blood pressure reading (Primary Dx); Chronic bilateral low back pain with left-sided sciatica; Epigastric pain; Screening for prostate cancer; Encounter for screening for malignant neoplasm of colon; Screening for cholesterol level; Screening for diabetes mellitus Social History Tobacco Use Types Packs/Day Years [...] PM EDT documented as of this encounter Last Filed Vital Signs Vital Sign Reading [...] Mass Index 31.24 11/28/2024 1:45 PM EDT documented in this encounter Progress Notes * Chip Juan, - 11/28/2024 2:00 PM EDT Subjective Patient ID: Himanshu Rodriguez is a 54 y.o. male who presents for New patient visit. Patient comes for the first time to see me. He is accompanied by his . He has not seen a physician in many years. Today his blood pressure is elevated. He complains of symptoms of heartburn oftenafter eating spicy foods. He does not have dysphagia or weight loss. He does not drink alcohol, he does not smoke cigarettes, he is a heavy coffee drinker, he drinks soda, and he chews mint gum many times throughout the day. He also complains of low back pain with radiation to the left leg on and off. This has been occurring since a work-related accident many years ago in [place]. Review of Systems Constitutional: Negative for chills, fatigue, fever and unexpected weight change. HENT: Negative for sore throat. Respiratory: Negative for cough, chest tightness and shortness of breath. Cardiovascular: Negative for chest pain, palpitations and leg swelling. Gastrointestinal: Negative for abdominal pain and blood in stool. See HPI Musculoskeletal: Positive for back pain. Visit Vitals BP (!) 155/103 (BP Location: Left arm, Patient Position: Sitting, BP Cuff Size: Large adult) Pulse 86 Temp 98.8 ??F (37.1 ??C) (Temporal) Resp 21 Ht 6' 1 (1.854 m) Wt 236 lb 12.8 oz (107 kg) SpO2 98% BMI 31.24 kg/m?? Smoking Status Never BSA 2.35 m?? Objective Physical Exam Constitutional: Appearance: Normal appearance. Cardiovascular: Rate and Rhythm: Normal rate and regular rhythm. Heart sounds: No murmur heard. Pulmonary: Effort: Pulmonary effort is normal. No respiratory distress. Breath sounds: No wheezing, rhonchi or rales. Abdominal: General: There is no distension. Palpations: Abdomen is soft. There is no mass. Tenderness: There is no abdominal tenderness. There is no guarding. Musculoskeletal: Lumbar back: Spasms and tenderness present. Right lower leg: No edema. Left lower leg: No edema. Neurological: General: No focal deficit present. Mental Status: He is alert. Motor: No weakness. Assessment/Plan Diagnoses and all orders for this visit: Elevated blood pressure reading Comments: I prescribed the patient a BP monitor for home use. Follow-up televisit with team nurse next week to decide if he needs to start on BP medication. Orders: - CBC auto differential; Future - Comprehensive Metabolic Panel; Future Chronic bilateral low back pain with left-sided sciatica Comments: I recommended acetaminophen as needed. Check lumbar spine x-ray. Orders: - XR Lumbar Spine Complete 4+ Views; Future Epigastric pain Comments: We discussed dietary changes. I specifically recommended to stop chewing mint gum, cut back on coffee, trial of daily PPI. Check CBC and CMP Screening for prostate cancer Comments: Check PSA Orders: - PSA,Total; Future Encounter for screening for malignant neoplasm of colon Comments: Referral to GI for screening colonoscopy Orders: - Referral to Gastroenterology; Future Screening for cholesterol level Comments: Check fasting blood work listed below Orders: - Lipid Panel, Standard; Future Screening for diabetes mellitus Comments: Check fasting blood work listed below. Tdap and flu vaccines today Orders: - Hemoglobin A1c; Future Other orders - Blood Pressure kit; Use at home once a day - omeprazole OTC (PriLOSEC OTC) 20 MG EC tablet; Take 1 tablet (20 mg) by mouth before breakfast. Do not crush, chew, or split. - acetaminophen (Tylenol Extra Strength) 500 MG tablet; Take 1 tablet (500 mg) by mouth every 8 (eight) hours if needed for moderate pain. - Flu vaccine greater than or equal to 6 months old, preservative free IM - Tdap vaccine greater than or equal to 7 years old IM documented in this encounter Plan of Treatment Upcoming Encounters Date Type Department Care Team ([facility] st Contact Info) Description 12/05/2024 11:00 AM EDT Telemedicine [address] [phone] 02/20/2025 11:15 AM EDT Office Visit [facility] [address] [place] [address] Name, MD Chip [address] [place] [address] Scheduled Orders Name Type Priority Associated Diagnoses Orde r Schedule CBC auto differential Lab Routine Elevated blood pressure reading Expected: 11/28/2024 (Approximate), Expires: 11/28/2025 Comprehensive Metabolic Panel Lab Routine Elevated blood pressure reading Expected: 11/28/2024 (Approximate), Expires: 11/28/2025 Lipid Panel, Standard Lab Routine Screening for cholesterol level Expected: 11/28/2024 (Approximate), Expires: 11/28/2025 Hemoglobin A1c Lab Routine Screening for diabetes mellitus Expected: 11/28/2024 (Approximate), Expires: 11/28/2025 PSA,Total Lab Routine Screening for prostate cancer Expected: 11/28/2024, Expires: 11/28/2025 XR Lumbar Spine Complete 4+ Views Imaging Routine Chronic bilateral low back pain with left-sided sciatica Expected: 11/28/2024, Expires: 11/28/2025 Scheduled Referrals Name Type Priority Associated Diagnoses Order Schedule Referral to Gastroenterology Outpatient Referral Routine Encounter for screening for malignant neoplasm of colon Expected: 11/28/2024 (Approximate), Expires: 11/28/2025 documented as of this encounter Visit Diagnoses Diagnosis Elevated blood pressure reading- Primary Elevated blood pressure reading without diagnosis of hypertension Chronic bilateral low back pain with left-sided sciatica Epigastric pain Abdominal pain, epigastric Screening for prostate cancer Special screening for malignant neoplasm of prostate Encounter for screening for malignant neoplasm of colon Screening for cholesterol level Screening for diabetes mellitus documented in this encounter Additional Health Concerns Assessment Noted Time PHQ-9 Depression Total Score: 0 11/29/19 1:54 PM EDT documented as of this encounter Care Teams Drivability Technician Relationship Specialty Start Date End Date Name, MD [address] [place] [address] PCP - General Internal Medicine 11/28/24 documented as of this encounter
== END 2024-11-28 14:35 | disposition home or self-care (01) ==
LOC: HO.HHCX 14:34
PROVIDERS: Visit Provider Internal Medicine Geriatric Medicine
DX: M54.42 Lumbago with sciatica, left side (principal); G89.29 Other chronic pain
CPT/HCPCS: 72110

== ENCOUNTER → 2024-11-28 14:37 | Outpatient (BNV) | payer MEDICAID, SELFPAY | PROVIDERS: Visit Provider Radiology Diagnostic Radiology | DX: S34.109A Unspecified injury to unspecified level of lumbar spinal cord, initial encounter (principal) | CPT/HCPCS: 72110 ==

== ENCOUNTER 2024-12-04 07:44 | Outpatient (REF) | payer MEDICAID, SELFPAY ==
[2024-12-04 07:57] LABS: MANUAL DIFF FLAG NO
[2024-12-04 08:32] LABS: Basophils Percent Auto 0.7 % (0-2); Eosinophils Absolute Auto 0.2 X10*3/uL (0.0-0.4); Eosinophils Percent Auto 2.8 % (0-4); Hematocrit 43.2 % (42.0-52.0); Hemoglobin 14.2 g/dl (14.0-18.0); Imm Gran Abs Auto 0.02 X10*3/uL (0.00-0.03); Imm Gran Pct Auto 0.3 % (0.0-0.4); Lymphocytes Absolute Auto 2.2 X10*3/uL (1.2-4.9); Lymphocytes Percent Auto 35.9 % (20-40); Mean Corpuscular HGB Conc 32.9 g/dl (31.0-36.0); Mean Corpuscular Hemoglobin 28.3 pg (27.0-33.0); Mean Corpuscular Volume 86.2 fL (80.0-98.0); Mean Platelet Volume 11.6 fL (9.4-12.4); Monocytes Absolute Auto 0.5 X10*3/uL (0.1-1.2); Monocytes Percent Auto 8.3 % (2-11); Neutrophils Absolute Auto 3.2 x10*3/uL (2.0-8.3); Platelet Count 228 X10*3/uL (160-400); Red Blood Count 5.01 X10*6/uL (4.60-5.80); Red Cell Distribution Width 12.9 % (11.0-16.0); White Blood Count 6.1 X10*3/uL (4.8-10.8)
[2024-12-04 09:48] LABS: Estimated Average Glucose 117 mg/dL; Hemoglobin A1c % 5.7 % (<6.0); Total Hemoglobin (HGBA1C) 3662.2182 umol/L
[2024-12-04 09:59] LABS: Alanine Aminotransferase 33 U/L (0-40); Albumin Level 4.6 g/dL (3.5-5.0); Alkaline Phosphatase 86 U/L (39-117); Anion Gap 11 (12-20); Aspartate Amino Transferase 24 U/L (5-37); Bilirubin Total 0.3 mg/dL (0.0-1.0); Blood Urea Nitrogen 22 mg/dL (9-16); Calcium 9.6 mg/dL (8.4-10.2); Carbon Dioxide 28 mmol/L (22-29); Chloride 108 mmol/L (96-108); Cholesterol 135 mg/dL (<200); Estimated Glomerular Filt Rate > 60; Glucose Random 98 mg/dL (60-115); HDL Cholesterol 31 mg/dL (>40); LDL Cholesterol Calculated 81 mg/dL (<100); Potassium 4.7 mmol/L (3.3-5.1); Sodium 142 mmol/L (135-145); Total Protein 8.5 g/dL (6.5-8.0); Triglycerides 118 mg/dL (<150)
[2024-12-04 10:11] LABS: Prostate Specific Antigen 0.44 ng/mL (<0.05-4.0)
== END 2024-12-04 07:45 | disposition home or self-care (01) ==
LOC: HO.LAB 07:44
PROVIDERS: PCP Internal Medicine Geriatric Medicine; Visit Provider Internal Medicine Geriatric Medicine
DX: R03.0 Elevated blood-pressure reading, without diagnosis of hypertension (principal); Z13.220 Encounter for screening for lipoid disorders; Z13.1 Encounter for screening for diabetes mellitus; Z12.5 Encounter for screening for malignant neoplasm of prostate
CPT/HCPCS: 36415; 80053; 80061; 83036; 84153; 85025

== ENCOUNTER 2025-05-14 12:35 | Outpatient (AMB) | payer MEDICAID, SELFPAY ==
--- NOTE | 2025-05-14 12:40 | A.OFFVIS_ITS ---
Vital Signs 05/14/25 12:41 Height 6 ft 1 in Weight 234 lb BMI 30.9 BP 144/86 H Blood Pressure Location Rt brachial Position Sitting Pulse 88 Pulse Source Pulse Oximeter Pulse Oximetry (%) 96 Oxygen Delivery Method Room Air Intake Visit Reasons: colonoscopy screening Intake Note: Additional notes requested from PCP 05/10 via efax. New pt for initial colo screening. Recent dietary related reflux. Taking PPI trial. CC: Pt denies any current GI sx. Confirms that his Rx therapy is OK. FMHx reported. Cost Estimating Clerk Required: Yes Cost Estimating Clerk Services: Cost Estimating Clerk Present Cost Estimating Clerk Name: [facility] (Provider only) Information Interpreted: clinical only Accompanied by: Family/Other Allergies No Known Allergies Allergy (Verified 12/05/24 15:43) HPI HPI colonoscopy screening: Details: 54 year old? male with past medical history of GERD is here today for pre colonoscopy screening.? Patient was sent to us by his PCP.? This is his first colonoscopy screening.? Reports acid reflux. Patient does admit that depends on what he eats he will have reflux. Taking omeprazole..? Patient reports family history of CRC. Maternal cousin and aunt was diagnosed with colon cancer. Maternal aunt from colon cancer..? Denies history of difficulty with sedation or anesthesia in the past.? Negative for history of sleep apnea.? Denies any history of cardiac, renal, pulmonary, or hepatic disease.?? No history of infectious? diseases like hepatitis A, B, C, HIV or tuberculosis.? Patient is not on any anticoagulation [facility] Medical History (Updated 05/14/25 @ 14:51 by Isha Mott [facility]) GERD (gastroesophageal reflux disease) Review of Systems Const Denies weight gain and Denies weight loss ENT Reports no additional complaints, Denies dysphagia and Denies odynophagia Card Reports no additional complaints Resp Reports no additional complaints GI Denies abdominal pain, Denies belching, Denies melena, Denies bloating, Denies change in bowel habits, Denies dysphagia, Denies excessive flatus, Denies dyspepsia, Denies heartburn, Denies diarrhea, Denies loose stools, Denies nausea, Denies odynophagia and Denies vomiting Reports no additional complaints Musc Reports no additional complaints Neuro Reports no additional complaints Psych Reports no additional complaints Endo Reports no additional complaints Physical Exam Vital Signs: Last Vital Signs Pulse 88 08/25/25 12:41 BP 144/86 H 05/14/25 12:41 Pulse Ox 96 05/14/25 12:41 Oxygen Delivery Method Room Air 05/14/25 12:41 BMI result Body Mass Index 30.9 Const General: healthy appearing, no acute distress and well developed Nutritional Appearance: well nourished Orientation/consciousness: patient oriented x3 Resp Effort & Inspection: normal respiratory effort, able to speak in complete sentences, no tracheal deviation and symmetric chest movement Auscultation: clear to auscultation bilaterally Cardio Rate: regular rate GI Inspection: Yes normal to inspection and No distended Palpation (GI): Soft to palpation, not firm, nontender and No hepatosplenomegaly present Auscultation: normal bowel sounds General: Yes no CVA tenderness Back/Spine/Pelvis Back: no CVA tenderness Skin General skin exam: elasticity normal, turgor normal and dry skin Neuro General: patient oriented x3 Psych Appearance: grossly normal Mental Status: mental status grossly normal Assessment & Plan Assessment & Plan (1) GERD (gastroesophageal reflux disease): Code(s): K21.9 - Gastro-esophageal reflux disease without esophagitis Category: Medical Qualifiers: Esophagitis presence: esophagitis presence not specified Qualified Code(s): K21.9 - Gastro-esophageal reflux disease without esophagitis (2) Screen for colon cancer: Code(s): Z12.11 - Encounter for screening for malignant neoplasm of colon Plan Patient denies any cardiac or respiratory symptoms.? Patient reports acid reflux will be sent for upper endoscopy to rule out gastritis, esophagitis, Barretts, H pylori. Denies any issues with anesthesia in the past.? Denies any history of sleep apnea.? No history infectious diseases in the past or present.? Not on any anticoagulation therapy.? No family or personal history of colon cancer or polyps.? Patient denies melena, hematochezia, unintentional weight loss or ribbon like stools.? Discussed at length the pre-procedure,? prep, diet & medications as well as what to expect prior, during and after the procedure.?? Stressed the importance of good bowel prep.? Recommended the use of Vaseline or Calmoseptine OTC & baby wipes with bowel movements to promote comfort.? ?Patient verbalizes understanding and agrees to plan of care.? He was given the opportunity to ask questions and all questions answered.? We will see him after the procedure.? Medications: New bisacodyl (Dulcolax (bisacodyl)) take 4 tabs at noon the day before your colonoscopy 20 mg (4 x 5 mg) PO ONCE 4 tabs 0RF constipation 1 day Z12.11 - Encounter for screening for malignant neoplasm of colon polyethylene glycol 3350 (Miralax) As directed by gastroenterology department at [facility] 238 grams PO ONCE 238 grams 0RF Z12.11 - Encounter for screening for malignant neoplasm of colon Coding Level of Care Code New Pt Level 3 (13969) Diagnoses Gastroesophageal reflux disease, unspecified whether esophagitis present K21.9 Esophagitis presence: esophagitis presence not specified Screen for colon cancer Z12.11 Time Spent (min) 40 Comment 30 minutes spent with patient and additional 10 minutes spent reviewing his records
[2025-05-14 12:41] VITALS: BP 144/86; PULSE 88; O2SAT 96; BMI 30.9
== END 2025-05-14 13:24 | disposition home or self-care (01) ==
LOC: HO.HGI 12:36
PROVIDERS: PCP Internal Medicine Geriatric Medicine; Visit Provider Nurse Practitioner Family
DX: Z01.818 Encounter for other preprocedural examination (principal); Z12.11 Encounter for screening for malignant neoplasm of colon; K21.9 Gastro-esophageal reflux disease without esophagitis
CPT/HCPCS: 99203

== ENCOUNTER → 2025-05-14 12:35 | Outpatient (BNVA) | payer MEDICAID, SELFPAY | PROVIDERS: PCP Internal Medicine Geriatric Medicine; Visit Provider Nurse Practitioner Family | DX: Z01.818 Encounter for other preprocedural examination (principal); K21.9 Gastro-esophageal reflux disease without esophagitis | CPT/HCPCS: 99212 ==

== ENCOUNTER 2025-05-19 08:07 | Outpatient (REF) | payer MEDICAID, SELFPAY ==
--- NOTE | ~2025-05-19 | XR_ITS ---
CLINICAL HISTORY: years of low back pain after work accident in [place] back 2014 Five views lumbar spine Comparison: CR/SR - XR LUMBAR SPINE 4 OR MORE VIEWS - 11/28/24 15:03 EDT Findings: Normal alignment. Straightening of lordosis is present, similar to the prior study. No acute fractures or dislocation. There is no significant loss of intervertebral disc height. IMPRESSION: Straightening of lordosis suggesting possible muscle spasm. This document has been electronically signed by: Emily Caraballo MD on 05/22/2025 16:16:05
[2025-05-19 09:28] LABS: Anion Gap 11 (12-20); Blood Urea Nitrogen 17 mg/dL (9-16); Calcium 9.4 mg/dL (8.4-10.2); Carbon Dioxide 31 mmol/L (22-29); Chloride 107 mmol/L (96-108); Estimated Glomerular Filt Rate > 60; Potassium 5.0 mmol/L (3.3-5.1); Sodium 144 mmol/L (135-145)
== END 2025-05-19 08:08 | disposition home or self-care (01) ==
LOC: HO.XRAY 08:07
PROVIDERS: PCP Internal Medicine Geriatric Medicine; Visit Provider Internal Medicine Geriatric Medicine
DX: M54.50 Low back pain, unspecified (principal); I10 Essential (primary) hypertension
CPT/HCPCS: 36415; 72110; 80048

== ENCOUNTER → 2025-05-19 08:22 | Outpatient (BNV) | payer MEDICAID, SELFPAY | PROVIDERS: PCP Internal Medicine Geriatric Medicine; Visit Provider Radiology Diagnostic Radiology | DX: M54.50 Low back pain, unspecified (principal) | CPT/HCPCS: 72110 ==